=== PATIENT | female | born 1985 | race Hispanic/Latino ===

== ENCOUNTER 2016-08-24 22:38 | Emergency (ER) | payer OTHER ==
[~2016-08-24] VITALS: Ht 152.4 cm; Wt 68.2 kg
[~2016-08-24 22:38] MED LIST: Docusate Sodium PO; FERR-74 PO; Ibuprofen PO; Oxycodone/Acetaminophen PO; PREN-99 PO
[2016-08-24 22:41] VITALS: BP 127/88; PULSE 84; RESP 20; O2SAT 98
[2016-08-24] MEDS ORDERED: MONT10TA23 PO (23:27)
[2016-08-24] MEDS ORDERED: DESO1TAB4 PO (23:27)
--- NOTE | 2016-08-24 23:34 | ED.REPORT ---
HPI-Dental/Mouth Prob Date of Service Aug 24, 2016 ED Provider: Brandon Sims Patient is a 31 year old female who presents to the ED s/p getting her wisdom teeth out complaining of increased pain and swelling. Associated symptoms include nausea and headache. She denies fevers, chills, or any other symptoms. She has been taking pain medication prescribed without relief. Nursing Notes Stated Complaint: EXTRACTED WISDOM TOOTH/FACIAL SWELLING Chief Complaint: Dental Nursing Notes Reviewed: Yes Allergies: Coded Allergies: codeine (Verified Allergy, Unknown, 08/24/16) Scheduled Desogestrel/Ethinyl Estradiol (Apri) 1 Each Tablet 1 TAB PO DAILY Montelukast (Montelukast) 10 Mg Tablet 1 TAB PO DAILY General Time Seen by MD: 23:33 Chief Complaint Tooth pain Hx Obtained From: Patient, Spouse Arrived By: Walk-in Onset Occurred: 5 - 8 hours ago Symptom Duration: Since onset Recent Healthcare: Recent doctor visit, Previous surgery Past Medical History Past Medical History Denies Past Surgical History [place] tooth extraction Smoking History Never Smoker Social History Alcohol Use: "Social" Other Social History: Good social support, Ambulatory Status Independent Review of Systems Review of Systems Note: +facial swelling, tooth pain Constitutional: Denies: Chills, Fever Complete sys rev & neg: except as marked. Neurologic: Reports: Headache Physical Exam Initial Vital Signs Vital Signs (First) Date Time Temp Pulse Resp B/P Pulse Ox O2 Delivery O2 Flow Rate FiO2 08/24/16 22:41 36.2 84 20 127/88 98 Room Air Initial VS: Reviewed, Vital signs normal General/Constitutional: Well-developed, Well-nourished Head / Eyes: Atraumatic, Normocephalic Respiratory: No respiratory distress Extremities: Vascular intact, Neuro intact Skin: Warm, Dry Neurologic: Alert, Oriented, Nonfocal Psychiatric: Mood/affect normal, Behavior normal, Normal thought content ENT: Pharynx NL R lower gum s/p wisdom tooth extraction. No erythema, discharge, or fluctuance Neck: Supple, Full range of motion, No adenopathy, No swelling Re-Eval/Medical Decision Med Decision/Clinical Course 31-year-old female presenting with dental pain after wisdom tooth extraction earlier today. There is no evidence of infection. She has been taking her narcotics with minimal improvement. She was given a dose of Toradol here. Discharged home with plans to a current pain medications as scheduled.. Return precautions given with signs and symptoms of infection. Re-Evaluation/Progress : Time of Eval: 23:47 Re-Evaluation/Progress Note: Discussed plan for discharge. Patient understands and agrees with plan. All questions addressed at this time. Counseled Regarding: Diagnosis, Need for follow-up, When/why to return to ED Discharge & Departure Primary Impression: Pain, dental Disposition: Home Discharge Condition All VS Reviewed: Yes Condition: Improved Patient Instructions: Tooth Extraction (ED) Additional Instructions: Thank you for entrusting us with your care. Your pain and swelling are appropriate for the progress of your healing. There is no evidence of infection at this time. Ice the area for 20 minutes at a time, 3-4 times a day. Take your medications as prescribed for pain. Return to the emergency department for new or worsening symptoms. Referrals: Bg Shepherd MD (PCP) Scribe Attestation Portions of this note were transcribed by Kirk Contreras. I, Dr. Sims personally performed the history, physical exam and medical decision-making; I reviewed and confirmed the accuracy of the information in the transcribed note. Signed by: Kirk Contreras 08/24/16, 6651 copies to: Bg Shepherd MD, Ben M MD Aug 24, 2016 23:34 KIRK CONTRERAS Aug 24, 2016 23:43
[2016-08-25 00:42] VITALS: BP 114/74; PULSE 74; RESP 18; O2SAT 97
== END 2016-08-25 00:43 | disposition home or self-care (01) ==
LOC: SED 22:38
DX: K08.89 Other specified disorders of teeth and supporting structures (principal); R51 Headache; R11.0 Nausea; Z88.5 Allergy status to narcotic agent; Z98.818 Other dental procedure status
CPT/HCPCS: 96372; 99283; J1885